=== PATIENT | male | born 1990 | race Caucasian/White ===

== ENCOUNTER 2018-07-18 02:18 | Emergency (ER) | payer OTHER ==
[~2018-07-18] VITALS: Ht 182.9 cm; Wt 97.1 kg
[2018-07-18 02:22] VITALS: Ht 182.9 cm; Wt 97.1 kg
[2018-07-18 03:47] VITALS: BP 120/74
== END 2018-07-18 03:47 | disposition home or self-care (01) ==
LOC: ED 02:18
DX: R10.13 Epigastric pain (principal); R11.2 Nausea with vomiting, unspecified; R19.7 Diarrhea, unspecified
CPT/HCPCS: J7030; Q0162